=== PATIENT | female | born 1950 ===

== ENCOUNTER 2023-11-20 14:14 | Day surgery (SDC) | payer BC, MEDICARE ==
[~2023-11-20 14:14] MED LIST: Cefuroxime 10 MG/ML SYRINGE EYERT SCH; Lidocaine 1% PF 2 ML SDV INJECT SCH; Pilocarpine 4% Ophth Soln 15 ML Bot EYERT SCH
[2023-11-20] MEDS: Polymyxin B/Trimethoprim 10 ML Bottle EYERT SCH (14:47)
[2023-11-20] MEDS: Brimonidine 0.2% Ophth Soln 5 ML Bottle EYERT SCH (14:52)
[2023-11-20] MEDS: Phenylephrine 2.5% Ophth Soln 2 ML Bot EYERT SCH (14:57)
[2023-11-20] MEDS: Tropicamide 1% Ophth Soln 3 ML Bottle EYERT SCH (15:02)
[2023-11-20] MEDS: Tetracaine HCl/PF 0.5% 4 ML Bottle EYEBOTH SCH (15:59)
== END 2023-11-20 16:45 | disposition home or self-care (01) ==
LOC: JD.SDS 14:14 → MERGE 17:15
PROVIDERS: ATTEND Ophthalmology
DX: H25.813 Combined forms of age-related cataract, bilateral (principal); H40.053 Ocular hypertension, bilateral; H43.813 Vitreous degeneration, bilateral; H18.413 Arcus senilis, bilateral; H16.103 Unspecified superficial keratitis, bilateral; H16.223 Keratoconjunctivitis sicca, not specified as Sjogren's, bilateral
CPT/HCPCS: A9270-GY; J3490